=== PATIENT | female | born 1985 ===

== ENCOUNTER 2023-08-13 08:37 | Emergency (ER) | payer OTHER, SELFPAY ==
[2023-08-13 08:50] VITALS: BP 145/98; PULSE 88; RESP 20; TEMP 36.3; O2SAT 99; BMI 27.1
--- NOTE | 2023-08-13 10:21 | ED_ITS ---
HPI - General Adult General Chief complaint: Dental/Oral Stated complaint: Dental Pain Time Seen by Provider: 08/13/23 10:20 Source: patient Mode of arrival: ambulatory Limitations: no limitations History of Present Illness HPI narrative: Patient is a 38 year old assigned female at with no reported medical history presenting to the emergency department today with right ear pain, right jaw pain, and right dental pain. Patient states that over the last 2 months she has had right ear pain but over the last few days she now has right dental and jaw pain. Patient denies any dizziness, lightheadedness, abdominal pain, nausea, vomiting, fever, chills, blurry vision, double vision, loss of vision, chest pain, difficulty breathing, shortness of breath, back pain, night sweats, pain with urination, increased urinary frequency, increased urinary urgency, blood in her urine or stool, syncope or a near syncopal episode, recent trauma or falls, bowel incontinence, bladder incontinence, bowel retention, bladder retention, or any other complaints at this time. Onset (ago): month(s) (2) Location: mouth and right (ear) Severity: mild Severity scale (1-10): 4 Quality: aching and dull Pain Consistency: constant Relieving factors: none Exacerbating factors: none Associated symptoms: denies other symptoms Treatments prior to arrival: none Related Data Previous Rx's ?Medication ?Instructions ?Recorded amoxicillin 875 mg tablet 875 mg PO BID 7 days #14 tabs 08/13/23 ciprofloxacin 0.3 %-dexamethasone 4 drp otic (ear) right BID 7 days 08/13/23 0.1 % ear drops,suspension #7.5 mL Allergies Allergy/AdvReac Type Severity Reaction Status Date / Time No Known Allergies Allergy Verified 08/13/23 08:52 [No Known Allergies*] Review of Systems 2 Constitutional: Constitutional: Reports no additional constitutional complaints, Denies chills, Denies fever(s) and Denies night sweats Eyes: Eyes: Reports no additional eye complaints, Denies blurry vision, Denies change in vision, Denies diplopia, Denies eye discharge, Denies loss of vision and Denies eye pain ENT: Denies dizziness Comments: right ear pain, right sided dental pain, and right jaw pain Cardiovascular: Cardiovascular: Reports no additional cardiovascular complaints, Denies chest pain, Denies lightheadedness, Denies Loss of Consciousness and Denies dyspnea Respiratory: Respiratory: Reports no additional respiratory complaints and Denies dyspnea Gastrointestinal: Gastrointestinal: Reports no additional gastrointestinal complaints, Denies abdominal pain, Denies melena, Denies hematochezia, Denies change in bowel habits and Denies change in stool character Genitourinary: Genitourinary: Denies hematuria, Denies urinary frequency, Denies dysuria, Denies urinary incontinence, Denies urinary hesitancy and Denies urinary urgency Musculoskeletal: Musculoskeletal: Reports no additional musculoskeletal complaints, Denies numbness and Denies tingling Neurologic: Denies dizziness, Denies loss of vision, Denies numbness and Denies tingling Psychiatric: Psychiatric: Reports no additional psychiatric complaints Endocrine: Endocrine: Reports no additional endocrine complaints Hematologic/Lymphatic: Hematologic/Lymphatic: Reports no additional hematologic/lymphatic complaints Allergic/Immunologic: Allergic/Immunologic: Reports no additional allergic/immunologic complaints [facility] Past Medical History Attestation statement: The following information was validated with the patient. Source: old records reviewed and nursing notes reviewed Social History Social History Advance Directives: No Physical Exam ED Vital Signs: Vital Signs - 24 hr 08/13/23 08:50 08/13/23 10:56 Temperature 97.4 F 97.4 F Pulse Rate 88 88 Respiratory Rate 20 20 Blood Pressure 145/98 H 145/98 H Pulse Oximetry 99 99 Oxygen Delivery Method Room Air Room Air BMI result Body Mass Index 27.1 Const General: cooperative, no acute distress, alert and awake Nutritional Appearance: well nourished Orientation/consciousness: patient oriented x3 Limitations: no limitations [facility] Other: Head: Yes normal to inspection and Yes atraumatic Ears: hearing grossly normal bilaterally and external ears normal General nose exam: Normal external nose present, no nasal discharge noted and no epistaxis Face and sinus: Yes normal facial exam, No abrasion and No laceration Mouth: Normal oral and palatal mucosa present, no drooling and no muffled voice Teeth and gingiva: poor dentition Teeth image: 2 1. large portion of tooth missing - no surrounding erythema or fluctuance Eyes General: appearance normal, both eyes and all related structures Periorbital: periorbital findings normal Eyelids: Yes eyelids normal Conjunctivae: conjunctivae normal Pupils: Equal, round and reactive pupils present EOM: EOMs intact bilaterally Neck Neck: Yes normal visual inspection, Yes full ROM and Yes no lymphadenopathy Chest Chest palpation & inspection: normal inspection of the chest Resp Effort & Inspection: normal respiratory effort and able to speak in complete sentences GI Inspection: Yes normal to inspection Neuro General: patient oriented x3 and moves all extremities Cranial nerves: Yes Equal, round and reactive pupils present Cognition (Neuro): normal cognition Motor exam (neuro): 5/5 motor strength present throughout Sensory Exam: Normal double simultaneous stimulation for sensation Coordination: [id number] test normal Extrem General: Yes normal to inspection, Yes full ROM and Yes capillary refill normal Psych Appearance: grossly normal Mental Status: mental status grossly normal Affect: normal affect Attitude: cooperative Thought process: Normal thought process present Thought content: Normal thought content present Insight: Good insight present (Psych) Medical Decision Making Medical Decision Making MDM Narrative: Patient is a 38 year old assigned female at with no reported medical history presenting to the emergency department today with right ear pain, right jaw pain, and right dental pain. Patient's physical exam was as noted in the physical exam portion of this note. Patient had an ulceration of the skin in the right ear canal which was acutely draining puss as well as bloody wax blocking the right TM - both items as pictured in the physical exam portion of this note. I attempted to remove the bloody wax in the right TM however, the patient could not tolerate it. Patient has poor dentition with multiple teeth missing portions of them, including tooth #1 which is where the patient is describing pain. However, no surrounding erythema or fluctuance noted anywhere in the mouth. Given the auditory canal ulceration seen and the blocking of the TM, will treat for both OM and OE. I explained my physical exam findings to the patient. I answered all questions asked by the patient. I stressed the importance of the patient taking her medication as prescribed. I stressed the importance of the patient following up with her primary care provider, an ENT, and a dentist. I stressed the importance of the patient returning to the emergency department immediately if her symptoms were to worsen or if she were to develop any dizziness, shortness of breath, difficulty breathing, chest pain, blurry vision, loss of vision, nausea, vomiting, abdominal pain, fever, chills, back pain, or any other complaints. Patient verbalized agreement and understanding with this treatment plan and discharge. Differential Diagnosis Differential Diagnoses: The differential diagnosis associated with the presentation includes Right OM Right OE Dental pain Poor dentition Dental caries Dental abscess Jaw pain Admission/Observation Consideration of admission/observation: Escalation of care including admission/observation considered Patient would have been admitted to the hospital had her clinical presentation warranted hospital admission. Prescription Management I considered prescription management with: Antibiotic (patient prescribed antibiotics to cover of OM and OE of the right ear.) Discharge Plan Discharge Clinical Impression: Otitis externa, Dental caries, Otitis media Patient Disposition: Home, Self-Care Instructions: Otitis Externa (DC), How to Use Ear Drops (ED), Ear Infection (ED) Additional Instructions: Follow up with your primary care provider, an ENT, and a dentist. Return to the emergency department immediately if your symptoms worsen or if you develop any dizziness, shortness of breath, difficulty breathing, chest pain, blurry vision, loss of vision, nausea, vomiting, abdominal pain, fever, chills, back pain, or any other complaints. Call or visit any of the clinics below to establish with a dentist: [facility] [address] [place] [address] [facility] [address] [facility], [id number] [address] [facility] [address] [place] [id number] [facility] [address] [place] [address] [place] [address] [place] [address] Prescriptions: New ciprofloxacin-dexamethasone 0.3-0.1 % drops,suspension 4 drp otic (ear) right BID 7 Days Qty: 7.5 0RF amoxicillin 875 mg tablet 875 mg PO BID 7 Days Qty: 14 0RF Referrals: [facility] [Provider Group] (Call to establish and follow up with an ENT specialist.) [facility] [Provider Group] (Call to establish and follow up with a primary care provider. If you already have a primary care provider, please follow up with them.) [facility] Primary Andrae Wilcox [Provider Group] [facility] Primary Carmel Wilcox [Provider Group] Stand Alone Forms: Work/School Release Interventions: ED Discharge Assessment Last Done: 08/13/23 10:56 Discharge Date/Time: 08/13/23 10:57 Print Language: Serbian
[2023-08-13 10:56] VITALS: BP 145/98; PULSE 88; RESP 20; TEMP 36.3; O2SAT 99
== END 2023-08-13 10:57 | disposition home or self-care (01) ==
PROVIDERS: Emergency Provider Emergency Medicine
DX: K02.9 Dental caries, unspecified (principal); H66.93 Otitis media, unspecified, bilateral; H60.93 Unspecified otitis externa, bilateral
CPT/HCPCS: 99283; 99284

== ENCOUNTER 2023-12-21 16:05 | Emergency (ER) | payer OTHER, SELFPAY ==
--- NOTE | ~2023-12-21 | CT_ITS ---
EXAMINATION: CT mastoid. CLINICAL INDICATION: Right ear infection. Tender to touch right mastoid. COMPARISON: None. TECHNIQUE: 0.6 mm thin axial and reformatted 0.610 sagittal and coronal images of mastoid sinuses were obtained without contrast. DLP 235. FINDINGS: There is a small polyp or retention cyst right maxillary sinus. Rest of the paranasal sinuses are well-aerated. The mastoid sinuses are well aerated. There is a soft tissue density in the right external ear lateral to the tympanic membrane. The right middle and right internal ear and mastoid sinuses are clear. There is no bony erosive changes seen involving the right middle ear or the petrous bone. The internal auditory canal, vestibule and semicircular canals are unremarkable. No soft tissue mass seen on the right side. There minimal soft tissue density in the left axillae are lateral to the tympanic membrane. The middle year and an internal artery canal are unremarkable. The left mastoid sinuses are well expanded and clear. No bony erosive changes seen involving left middle ear or the petrous bone. The soft tissues are normal. Visualized nasopharynx and bilateral perihilar pharyngeal soft tissues are normal. CT/CT mastoid IMPRESSION: 1. Soft tissue density in the right external ear lateral to the tympanic membrane. The right middle ear and mastoid sinuses are clear. No bony erosive changes seen involving the right middle ear or the petrous bone. 2. There is minimal soft tissue density in the left external ear lateral to the tympanic membrane. The left middle ear and mastoid sinuse is clear. No bony erosive changes seen involving the left middle ear or the petrous bone. 3. Small polyp or retention cyst right maxillary sinus. Electronically signed by: Andrew Dutta MD 12/21/2023 05:34 PM EDT RP
[2023-12-21 16:23] VITALS: BP 112/84; PULSE 94; RESP 16; TEMP 37.1; O2SAT 99; BMI 27.2
--- NOTE | 2023-12-21 16:23 | ED_ITS ---
HPI - Ear Problem General Chief complaint: Ear Problems Stated complaint: ear infection, headache, sore throat History of Present Illness HPI Narrative: LWCT Related Data Previous Rx's ?Medication ?Instructions ?Recorded amoxicillin 875 mg tablet 875 mg PO BID 7 days #14 tabs 08/13/23 ciprofloxacin 0.3 %-dexamethasone 4 drp otic (ear) right BID 7 days 08/13/23 0.1 % ear drops,suspension #7.5 mL Allergies Allergy/AdvReac Type Severity Reaction Status Date / Time No Known Allergies Allergy Verified 12/21/23 16:25 [No Known Allergies*] [facility] Social History Social History Advance Directives: No Advance Directives Information Provided: No Do you have a plan to hurt others: No Plan Physical Exam 2 Vital Signs: Vital Signs: Last Vital Signs Temp 98.7 F 12/21/23 16:23 Pulse 94 12/21/23 16:23 Resp 16 12/21/23 16:23 BP 112/84 12/21/23 16:23 Pulse Ox 99 12/21/23 16:23 O2 Del Method Room Air 12/21/23 16:23 BMI result Body Mass Index 27.2 Course Course Course Narrative: Reports an ongoing ear infection on the right side, headache, sore throat , right jaw pain and right dental pain. Symptoms have been progressing over the past year. She was seen in the emergency department August of 2023, diagnosed with otitis externa, provided with a course of amoxicillin orally and Ciprodex drops. She states her symptoms have continued she is now having progression of the pain down behind the ear and down the right lateral neck.. She has been taking an abundance of ibuprofen for pain management and now she is experiencing abdominal pain nausea. Plan: Labs, radiographic imaging Medical Decision Making Lab Data 12/21/23 16:44 12/21/23 16:44 Labs: Lab Results 12/21/23 Range/Units 16:44 WBC 8.9 (4.8-10.8) X10*3/uL RBC 3.93 L (4.20-5.50) X10*6/uL Hgb 11.9 L (12.0-16.0) g/dl Hct 34.1 L (37.0-47.0) % MCV 86.8 (80.0-98.0) fL MCH 30.3 (27.0-33.0) pg MCHC 34.9 (31.0-35.0) g/dl RDW 12.6 (11.0-16.0) % Plt Count 260 (160-400) X10*3/uL MPV 10.0 (9.4-12.3) fL Immature Gran % (Auto) 0.2 (0.0-0.4) % Neut % (Auto) 63.9 (45-73) % Lymph % (Auto) 29.3 (20-40) % [place] % (Auto) 5.4 (2-11) % Eos % (Auto) 1.0 (0-4) % Baso % (Auto) 0.2 (0-2) % Lymph # (Auto) 2.6 (1.2-4.9) X10*3/uL [place] # (Auto) 0.5 (0.1-1.2) X10*3/uL Eos # (Auto) 0.1 (0.0-0.4) X10*3/uL Baso # (Auto) 0.0 (0.0-0.2) X10*3/uL Abs Immat Gran (auto) 0.02 (0.00-0.03) X10*3/uL Absolute Neuts (auto) 5.7 (2.0-8.3) x10*3/uL Absolute Nucleated RBC 0.000 (0.0-0.012) X10*3/uL Nucleated RBC % (auto) 0.0 (0.0-0.2) /100WBC Sodium 140 (135-145) mmol/L Potassium 4.1 (3.3-5.1) mmol/L Chloride 106 (96-108) mmol/L Carbon Dioxide 26 (22-29) mmol/L Anion Gap 12 (12-20) BUN 8 L (9-16) mg/dL Creatinine 0.72 (0.5-1.4) mg/dL Estim Creat Clear Calc 75.4 Estimated GFR > 60 Random Glucose 100 (60-115) mg/dL Calcium 9.3 (8.4-10.2) mg/dL Total Bilirubin 0.3 (0.0-1.0) mg/dL AST 18 (5-31) U/L ALT 14 (0-31) U/L Alkaline Phosphatase 48 (39-117) U/L Total Protein 7.5 (6.5-8.0) g/dL Albumin 4.3 (3.5-5.0) g/dL Lipase 21 (8-78) U/L Beta HCG, Quant < 2 mIU/mL Influenza Type A (PCR) NEGATIVE (Negative) Influenza Type B (PCR) NEGATIVE (Negative) RSV RNA Qual (PCR) NEGATIVE (Negative) SARS-CoV-2 RNA (RT-PCR) NEGATIVE (Negative) S. pyogenes GrpA [place] Negative (Negative) Discharge Plan Discharge Clinical Impression: Otalgia Patient Disposition: Left W/O Completing Treatment Prescriptions: No Action ciprofloxacin-dexamethasone 0.3-0.1 % drops,suspension 4 drp otic (ear) right BID 7 Days Qty: 7.5 0RF amoxicillin 875 mg tablet 875 mg PO BID 7 Days Qty: 14 0RF Discharge Date/Time: 12/21/23 21:23
[2023-12-21 16:48] LABS: MANUAL DIFF FLAG NO
[2023-12-21 16:56] LABS: IDNOW Serial# 08D9AD1C; Strep A Nucleic Acid Negative (Negative)
[2023-12-21 17:02] LABS: Basophils Percent Auto 0.2 % (0-2); Eosinophils Absolute Auto 0.1 X10*3/uL (0.0-0.4); Hematocrit 34.1 % (37.0-47.0); Hemoglobin 11.9 g/dl (12.0-16.0); Imm Gran Abs Auto 0.02 X10*3/uL (0.00-0.03); Imm Gran Pct Auto 0.2 % (0.0-0.4); Lymphocytes Absolute Auto 2.6 X10*3/uL (1.2-4.9); Lymphocytes Percent Auto 29.3 % (20-40); Mean Corpuscular HGB Conc 34.9 g/dl (31.0-35.0); Mean Corpuscular Hemoglobin 30.3 pg (27.0-33.0); Mean Corpuscular Volume 86.8 fL (80.0-98.0); Monocytes Absolute Auto 0.5 X10*3/uL (0.1-1.2); Monocytes Percent Auto 5.4 % (2-11); Neutrophils Absolute Auto 5.7 x10*3/uL (2.0-8.3); Neutrophils Percent Auto 63.9 % (45-73); Platelet Count 260 X10*3/uL (160-400); Red Blood Count 3.93 X10*6/uL (4.20-5.50); Red Cell Distribution Width 12.6 % (11.0-16.0); White Blood Count 8.9 X10*3/uL (4.8-10.8)
[2023-12-21 17:09] LABS: Alanine Aminotransferase 14 U/L (0-31); Albumin Level 4.3 g/dL (3.5-5.0); Alkaline Phosphatase 48 U/L (39-117); Anion Gap 12 (12-20); Aspartate Amino Transferase 18 U/L (5-31); Bilirubin Total 0.3 mg/dL (0.0-1.0); Blood Urea Nitrogen 8 mg/dL (9-16); Calcium 9.3 mg/dL (8.4-10.2); Carbon Dioxide 26 mmol/L (22-29); Chloride 106 mmol/L (96-108); Creatinine Clr Calc Pharmacy 75.4; Estimated Glomerular Filt Rate > 60; Glucose Random 100 mg/dL (60-115); Lipase 21 U/L (8-78); Potassium 4.1 mmol/L (3.3-5.1); Sodium 140 mmol/L (135-145); Total Protein 7.5 g/dL (6.5-8.0)
[2023-12-21 17:15] LABS: HCG Quantitative < 2 mIU/mL
[2023-12-21 17:27] LABS: Influenza A PCR NEGATIVE (Negative); Influenza B PCR NEGATIVE (Negative); Resp Syncy Virus RNA Qual PCR NEGATIVE (Negative); SARS COV2 PCR INHOUSE NEGATIVE (Negative)
--- NOTE | 2023-12-21 21:19 | PC.NURSE ---
patient made the decision to leave the ED tonight as she hasn't been seen yet and she needs to get home to her daughter who is 9 yrs old and sick. Charge nurse is aware.
== END 2023-12-21 21:23 | disposition left against medical advice (07) ==
PROVIDERS: Nurse Practitioner Family; Emergency Provider Emergency Medicine Emergency Medical Services
DX: H66.91 Otitis media, unspecified, right ear (principal); H92.01 Otalgia, right ear; R51.9 Headache, unspecified; J02.9 Acute pharyngitis, unspecified; K08.89 Other specified disorders of teeth and supporting structures; Z03.818 Encounter for observation for suspected exposure to other biological agents ruled out; Z79.899 Other long term (current) drug therapy
CPT/HCPCS: 0241U; 36415; 70481; 80053; 83690; 84702; 85025; 87651; 99281; 99283